=== PATIENT | male | born 1985 | race Caucasian/White ===

== ENCOUNTER 2020-06-05 13:21 | Emergency (ER) | payer SELFPAY ==
[~2020-06-05] VITALS: Ht 167.6 cm; Wt 100.0 kg
[2020-06-05] MEDS ORDERED: SODIUM CHLORIDE 0.9% 1,000 ML IV ONE (14:05)
[2020-06-05 14:33] LABS: BASOPHILS % 0.6 % (0.0-2.0); EOSINOPHILS % 0.3 % (0.0-5.0); HEMATOCRIT. 49.2 % (42.0-52.0); HEMOGLOBIN. 16.3 g/dL (14.0-18.0); LYMPHOCYTES % 24.5 % (20.0-50.0); MEAN CORPUSCULAR HEMOGLOBIN 28.3 pg (28.0-32.0); MEAN CORPUSCULAR VOLUME 85.3 fL (80.0-94.0); MEAN PLATELET VOLUME 7.9 fl (7.4-10.4); MONOCYTES % 6.4 % (2.0-8.0); NEUTROPHILS % 68.2 % (40.0-76.0); PLATELET 242 x1000/uL (130-400); RED BLOOD CELL COUNT 5.77 mill/uL (4.7-6.1); RED CELL DISTRIBUTION WIDTH 13.5 % (11.6-14.6)
[2020-06-05 14:40] LABS: CHLORIDE 107 mEq/L (98-107)
[2020-06-05 14:50] LABS: ETHANOL BLOOD 341 mg/dL
[2020-06-05] MEDS ORDERED: KCL 10MEQ/50ML PREMIX 50 ML IV SCH (16:00)
[2020-06-05 17:28] VITALS: BP 135/75
== END 2020-06-05 18:00 | disposition home or self-care (01) ==
LOC: ER 13:21
DX: T51.0X1A Toxic effect of ethanol, accidental (unintentional), initial encounter (principal); Y90.8 Blood alcohol level of 240 mg/100 ml or more; E87.6 Hypokalemia; E11.9 Type 2 diabetes mellitus without complications
CPT/HCPCS: 36415; 70450; 80053; 80320; 85025; 96360; 99284; J3480; J7030; 80305; 81003; G0480